=== PATIENT | male | born 1945 | race African-American/Black ===

== ENCOUNTER 2018-02-17 07:37 | Observation (INO) | payer MEDICARE ==
[2018-02-14 11:56] LABS: BASOPHILS % 0.7 % (0.0-1.0); EOSINOPHILS # (AUTO) 0.4 (0.0-0.4); EOSINOPHILS % 6.5 % (0.0-6.0); HEMATOCRIT 39.1 % (38.2-49.6); HEMOGLOBIN 14.4 g/dL (14.0-18.0); LYMPHOCYTES # (AUTO) 1.5 (1.0-3.2); MEAN CORPUSCULAR HEMOGLOBIN 32.9 pg (28-32); MEAN CORPUSCULAR HGB CONC 36.8 g/dL (31-35); MEAN CORPUSCULAR VOLUME 89.3 fL (81-99); MONOCYTES # (AUTO) 0.5 (0.2-0.8); MONOCYTES % 9.9 % (4.4-11.3); NEUTROPHILS % 55.5 % (38.7-80.0); PLATELET COUNT 205 x10e3/uL (140-360); RED BLOOD COUNT 4.38 x10e6/uL (4.3-5.7)
[2018-02-14 12:13] LABS: ANION GAP 12.5 mmol/L (8-16); BLOOD UREA NITROGEN 15 mg/dL (7-26); BUN/CREATININE RATIO 14 (6-25); CARBON DIOXIDE 27 mmol/L (22-29); CHLORIDE 100 mmol/L (98-107); CREATININE, SERUM 1.04 mg/dL (0.72-1.25); EST GLOMERULAR FILTRATION RATE > 60 ML/MIN (60-); GLUCOSE 97 mg/dL (74-118); POTASSIUM 4.5 mmol/L (3.5-5.1); SODIUM 135 mmol/L (136-145)
--- NOTE | 2018-02-14 12:22 | Diagnostic Imaging Report ---
PROCEDURE: X-RAY CHEST, TWO VIEWS COMPARISON: None. INDICATIONS: PRE OPERATIVE CHEST X-RAY FOR UROLOGY FINDINGS: LUNGS: No consolidations or edema. No mass.Pulmonary vascular markings are normal. PLEURA: No effusions or pneumothorax. HEART \T\ MEDIASTINUM: The heart top normal in size. There is mild ectasia of the descending thoracic aorta. No hilar lymphadenopathy. BONES \T\ SOFT TISSUES: Mild endplate degenerative change of the spine consistent with age. CONCLUSION: No acute thoracic abnormality. Dictated by: Deepak Pina M.D. on 02/14/2018 at 12:25 Electronically approved by: Deepak Pina M.D. on 02/14/2018 at 12:25
[~2018-02-17] VITALS: Ht 177.8 cm; Wt 86.2 kg
[~2018-02-17 07:37] MED LIST: ALPRAZOLAM1 MG PO; ASPIR 8181 MG PO; BREO ELLIPTA INH; DOC-Q-LACE100 MG PO; DOXAZOSIN MESYLA4 MG PO; HYDROCHLOROTHIA25 MG PO; MELOXICAM15 MG PO; NIFEDIPINE ER60 M1 PO; PRAVASTATIN SOD40 MG PO; PROAIR HFA INH8.5 GM INH
[2018-02-17] MEDS ORDERED: CEFTRIAXONE SOD 1 GM VIAL ONE (07:59)
[2018-02-17] MEDS ORDERED: LIDOCAINE HCL 1% LOCAL INJ 20 ML VIAL ONE (09:16)
[2018-02-17] MEDS ORDERED: BACITRACIN 50,000 UNIT VIAL ONE (09:16)
[2018-02-17] MEDS ORDERED: FENTANYL CITRATE/PF 100MCG/2 ML INJ ONE ×2 (14:11→16:44)
[2018-02-17] MEDS ORDERED: MELOXICAM 7.5 MG TAB PO PRN (14:45)
[2018-02-17] MEDS ORDERED: ALBUTEROL SULFATE HFA 8GM INHALATION AEROSOL INH PRN (14:45)
[2018-02-17 15:09] VITALS: BP 164/93
[2018-02-17 16:02] VITALS: BP 164/93
[2018-02-17] MEDS ORDERED: MIDAZOLAM HCL 2 MG/2 ML VIAL ONE (16:44)
[2018-02-17] MEDS ORDERED: ALPRAZOLAM 1 MG TAB PO SCH (17:00)
[2018-02-17] MEDS ORDERED: ONDANSETRON HCL INJ 2 MG/ML VIAL ONE (18:25)
[2018-02-17] MEDS ORDERED: EPHEDRINE SULFATE INJ 50 MG/10 ML SYR ONE (18:25)
[2018-02-17] MEDS ORDERED: SEVOFLURANE INHAL SOLN 250 ML PEN BTL ONE (18:25)
[2018-02-17] MEDS ORDERED: PROPOFOL IV EMULSION 10 MG/ML 20 ML VIAL ONE (18:25)
[2018-02-17] MEDS ORDERED: DEXAMETHASONE SOD PHOS INJ 4 MG/ML VIAL ONE (18:25)
[2018-02-17] MEDS ORDERED: LIDOCAINE HCL 2% LOCAL INJ 5 ML SDV VIAL INJ ONE (18:25)
[2018-02-17 20:03] VITALS: BP 164/93
[2018-02-17 20:15] VITALS: BP 138/81
[2018-02-17] MEDS ORDERED: PRAVASTATIN 20 MG TAB PO SCH (21:00)
[2018-02-17] MEDS: ALPRAZOLAM 1 MG TAB PO SCH (21:06)
[2018-02-17 21:07] VITALS: BP 138/81
[2018-02-18 01:00] VITALS: BP 138/79
[2018-02-18 04:30] VITALS: BP 140/80
[2018-02-18] MEDS ORDERED: BREO ELLIPTA INHALER INH SCH (06:00)
[2018-02-18 08:00] VITALS: BP 142/80
[2018-02-18] MEDS: ALPRAZOLAM 1 MG TAB PO SCH (08:20)
[2018-02-18] MEDS ORDERED: DOXAZOSIN MESYLATE 2 MG TAB PO SCH (09:00)
[2018-02-18] MEDS ORDERED: DOCUSATE SODIUM 100 MG CAP PO SCH (09:00)
[2018-02-18] MEDS ORDERED: HYDROCHLOROTHIAZIDE 25 MG TAB PO SCH (09:00)
[2018-02-18] MEDS ORDERED: NIFEDIPINE CR 30 MG TAB PO SCH (09:00)
[2018-02-18 09:45] VITALS: BP 142/80
[2018-02-18] MEDS ORDERED: TYLENOL # 31 EA PO (13:53)
[2018-02-18] MEDS ORDERED: CIPRO500 MG PO (13:54)
[2018-02-18] MEDS ORDERED: SIMVASTATIN 20 MG TAB PO SCH (21:00)
--- NOTE | 2018-02-24 09:06 | Operative Report ---
DATE OF PROCEDURE: February 17, 2018 PREOPERATIVE DIAGNOSIS: Malfunction of penile prosthesis. POSTOPERATIVE DIAGNOSIS: Malfunction of penile prosthesis. OPERATIVE PROCEDURE PERFORMED: Removal and replacement of penile prosthesis. ANESTHESIA: General anesthesia. ESTIMATED BLOOD LOSS: Approximately 50 mL. INDICATIONS: Mr. Abdulaziz Multani is a 72-year-old gentleman now approximately 1 year status post placement of semirigid penile prosthesis, who has failure of the prosthesis to maintain adequate erection with penetration. 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 He now presents for evaluation and management of this problem. PROCEDURE IN DETAIL: The patient was brought in the operating room and placed in supine position. After administration of general anesthesia, was prepped and draped in usual sterile fashion. A Izquierdo catheter was placed and the balloon inflated. A penoscrotal incision was made sharply and dissection was carried out through the layers of the penis. The left corporal body was identified first and this was opened using electrocautery device. The semirigid prosthesis was removed and this measured 16 cm with [address] The cavernosal body was then copiously irrigated using antibiotic solution and measurements were obtained. The corporal body measured 24 cm in length. Dissection was then performed on the right corporal body where again the semirigid prosthesis was removed and measurements revealed a 24 cm channel. In both cases, an 18-[place] inflatable prosthesis was placed with 6 cm RTEs. These were placed without difficulty and the corporal bodies were closed using a running PDS suture. Great care was taken to prevent injury to the prosthesis. A subdartos pocket was created in the scrotum and the pump was placed in this location. A separate incision approximately 6 cm in length was made horizontally over the right groin crease. Dissection was carried out through the layers of the abdomen. A horizontal incision was made over the rectus fascia, and the subrectus pocket was created. The reservoir was placed in this location and filled with 65 mL of sterile fluid. The tubing was allowed to come out through a separate stab incision inferior to the wound. The fascial wound was then closed using running Vicryl suture. The pump and the reservoir were then closed using the quick-connect method. The prosthesis was cycled, it noted to fill and empty adequately. It was left partially erect. All the wounds were then closed in multiple layers using Vicryl sutures. The skin was closed with a Monocryl stitch. The wounds were then cleaned and dried and covered with Mastisol, Steri-Strips, and Tegaderm dressing. Anesthesia was reversed, and the patient was transferred to a bed and taken to the postanesthesia care unit in good condition. Of note, the needle and instrument counts were correct at the conclusion of the case. Job#: [id number]
== END 2018-02-18 14:09 | disposition home or self-care (01) ==
LOC: OR 07:37 → PACU V 15:42 → IMCU 15:48
PROVIDERS: ADMIT Urology; ATTEND Urology
DX: T83.410A Breakdown (mechanical) of implanted penile prosthesis, initial encounter (principal); F41.9 Anxiety disorder, unspecified; K21.9 Gastro-esophageal reflux disease without esophagitis; J45.909 Unspecified asthma, uncomplicated; I10 Essential (primary) hypertension; E78.5 Hyperlipidemia, unspecified
CPT/HCPCS: 36415; 71046; 80048; 85025; 93005; C1813; G0378; J0696; J1100; J2001; J2250; J2405